=== PATIENT | male | born 1995 | race Hispanic/Latino ===

== ENCOUNTER → 2020-06-07 | Outpatient (CLI) | payer BC | END | disposition home or self-care (01) | LOC: OIH 10:40 | PROVIDERS: ATTEND Internal Medicine | DX: R05 Cough (principal); Z86.16 Personal history of COVID-19 | CPT/HCPCS: 71046 ==

== ENCOUNTER → 2022-03-31 | Outpatient (CLI) | payer BC | END | disposition home or self-care (01) | LOC: RAH 15:55 | PROVIDERS: ATTEND Internal Medicine | DX: R07.1 Chest pain on breathing (principal) | CPT/HCPCS: 71046 ==